=== PATIENT | male | born 1980 | race Two or more races ===

== ENCOUNTER 2022-08-01 18:41 | Emergency (ER) | payer MEDICAID ==
[~2022-08-01] VITALS: Ht 180.3 cm; Wt 85.0 kg
[2022-08-01 18:45] VITALS: BP 148/100
[2022-08-01] MEDS ORDERED: ASPIRIN 81MG TABLET PO ONE (19:00)
[2022-08-01 20:26] LABS: BASOPHILS % 0.4 % (0.0-2.0); EOSINOPHILS % 3.3 % (0.0-5.0); HEMATOCRIT. 41.7 % (42.0-52.0); HEMOGLOBIN. 14.1 g/dL (14.0-18.0); LYMPHOCYTES % 28.6 % (20.0-50.0); MEAN CORPUSCULAR HEMOGLOBIN 28.3 pg (28.0-32.0); MEAN CORPUSCULAR VOLUME 83.8 fL (80.0-94.0); MEAN PLATELET VOLUME 8.7 fl (7.4-10.4); MONOCYTES % 6.9 % (2.0-8.0); NEUTROPHILS % 60.8 % (40.0-76.0); PLATELET 301 x1000/uL (130-400); RED BLOOD CELL COUNT 4.98 mill/uL (4.7-6.1); RED CELL DISTRIBUTION WIDTH 16.2 % (11.6-14.6)
[2022-08-01 20:35] LABS: CHLORIDE 101 mEq/L (98-107)
[2022-08-01] MEDS ORDERED: ACETAMINOPHEN 325MG TABLET PO NR (21:30)
[2022-08-02] MEDS ORDERED: ASPIRIN 81MG TABLET PO NR (02:00)
== END 2022-08-02 12:45 | disposition home or self-care (01) ==
LOC: ER 19:39
DX: R07.9 Chest pain, unspecified (principal); Z96.659 Presence of unspecified artificial knee joint
CPT/HCPCS: 36415; 71045; 80053; 83880; 84484; 85025; 85379; 93005; 99285; Z7610